=== PATIENT | male | born 1945 | race Caucasian/White ===

== ENCOUNTER 2020-11-22 20:53 | Emergency (ER) | payer OTHER, MEDICARE ==
[~2020-11-22] VITALS: Ht 175.3 cm; Wt 90.9 kg
[2020-11-22 21:06] VITALS: BP 129/85
[2020-11-22] MEDS ORDERED: DABI150C PO (21:28)
== END 2020-11-22 21:47 | disposition home or self-care (01) ==
LOC: ER 20:54
DX: Z76.0 Encounter for issue of repeat prescription (principal); Z88.2 Allergy status to sulfonamides; Z88.1 Allergy status to other antibiotic agents; Z88.8 Allergy status to other drugs, medicaments and biological substances; Z79.899 Other long term (current) drug therapy
CPT/HCPCS: 99281